=== PATIENT | female | born 1945 ===

== ENCOUNTER → 2017-05-16 | Day surgery (SDC) | payer OTHER ==
[~2017-05-16] MED LIST: CARVEDILOL6.25 MG PO; FENOFIBRATE145 MG PO; FEOSOL325 MG PO; FOLIC ACID1 MG PO; LEVO-T125 MCG PO; METFORMIN HCL1000 MG PO; NORVASC10 MG PO; PRAVASTATIN SOD40 MG PO
== END | disposition home or self-care (01) ==
LOC: ADM 05-11 10:15 → CIR.AMB 10:12
DX: C18.2 Malignant neoplasm of ascending colon (principal)